=== PATIENT | male | born 1930 | race Caucasian/White ===

== ENCOUNTER 2017-02-26 08:59 | Inpatient (IN) ==
[2017-02-26] MEDS ORDERED: ASPIRIN 325 MG TABLET PO STA (09:16)
--- NOTE | 2017-02-26 09:19 | EKG Report ---
Stationary ECG Study [facility] ER Test Date: 02/26/2017 9:11:16 AM Pat Name: ARMIN COLLIER Department: Room: Gender: M Rn Women Services: : 1930 Requested by: Dillon Casas Order Number: [id number] Reading MD: NATA MARTINEZ Intervals [address] Rate: 43 P: -4 TN: 187 QRS: 12 QRSD: 96 T: 101 QT: 501 QTc: 449 Interpretive Statements SINUS BRADYCARDIA MODERATE T-WAVE ABNORMALITY, CONSIDER ANTEROLATERAL ISCHEMIA Electronically Signed On 02-28-17 15:14:34 CDT by NATA MARTINEZ [id number]
[2017-02-26 09:26] LABS: Basophils % 0.6 % (0.0-0.8); Eosinophils # 0.2 10*3/uL (0.0-0.87); Hematocrit 41.4 VOL% (42.0-52.0); Immature Granulocytes % 0.2 %; Immature Granulocytes Absolute 0.01 #; Lymphocytes # 1.7 10*3/uL (1.4-4.0); Mean Corpuscular HGB Conc 33.8 GM/DL (32-36); Mean Corpuscular Hemoglobin 32 PG (27-34); Mean Corpuscular Volume 94.5 FL (87-102); Mean Platelet Volume 9.5 FL (9.6-12.0); Monocytes # 0.5 10*3/uL (0.11-0.8); Monocytes % 10.3 % (1.7-12.7); Neutrophils # 2.3 10*3/uL (1.4-7.4); Neutrophils % 47.9 % (38.7-73.9); Platelet Count 223 T/CUMM (130-400); Red Blood Count 4.38 MC/CUMM (3.8-5.5); Red Cell Distribution Width 14.4 % (9.3-17.3); White Blood Count 4.8 T/CUMM (4-12)
--- NOTE | 2017-02-26 09:31 | Emergency Department Note ---
Humberto Aldridge Brooke, am scribing for, and in the presence of, Dillon Alvarez MD 09:24 . Kim Aldridge James D, MD, personally performed the services described in this documentation, ascribed by Eloisa Paul in my presence, and it is both accurate and complete 929 . Arrival - Arrival Chief Complaint: Chest Pain Stated Complaint: chest pain/syncope ED Nursing Triage Note: pt reports not feeling well for about two weeks. went to [place] this morning and had episode of pain across his chest followed by possible syncopal episode. diaphoretic on ems arrival. Mode of Arrival: Stretcher Limitations: No Limitations Source: Patient, RN Notes Reviewed Time Seen by Provider: 02/26/17 09:13 - History of Present Illness HPI Narrative: Patient is a 86 year old male, who was brought into the ED by EMS, following an episode of chest pain and possible syncope. Patient was with his and were going to [employer] when he had this episode. Patient's had already gone inside, but he says when he got out of his vehicle, he had some sudden onset left sided chest pain and then says he feel but is unsure if he actually fainted. Family says Patient was found hanging onto his vehicle and they do not think he hit his head. Patient says he has been feeling "bad" for the past four to five weeks. He says his chest pain is gone, now. His has a history of Parkinson's Disease but Family says his tremors is currently worse than they normally are. He denies being lightheaded but upon exam, he says he did have some when he sat up. Patient also denies any melena, blood in stool, or leg/ feet edema. Patient also has PMHx of HTN and pulmonary embolism. Patient's Primary Care Provider is EXPERIENCE DESIGNER Iwona Davey. Patient is prescribed some eye drops but they are unsure what they are for. Patient goes back to see his Opthamologist, Dr. Alfonso, On March 10, 2017. Allergies/Adverse Reactions: Allergies Allergy/AdvReac Type Severity Reaction Status Date / Time meperidine [From Demerol] Allergy Unknown/Unable Verified 02/26/17 09:09 to obtain Review of System - Review of System 12 point system: reviewed and no additional remarkable complaints except as stated - Review of System Constitutional: Absent: fever Respiratory: Absent: respiratory distress Cardiovascular: Present: chest pain (left sided- gone now), syncope (possible episode). Absent: edema Skin: Absent: rash Medical,Surgical,& Family Hx - Medical History Cardio: History of: Hypertension Respiratory: History of: Pulmonary Embolism Musculoskeletal: History of: Musculoskeletal Problems - Surgical History Cardiac Surgeries: Sugical HX of: Cardiac Catheterization (stents), Cardiac Surgery (bypass) - Social History Smoking Status: Unknown if ever smoked Exam Vital Signs: Vital Signs Pulse Rate 44 L 02/26/17 09:00 Respiratory Rate 18 02/26/17 09:00 Blood Pressure 135/56 02/26/17 09:00 O2 Sat by Pulse Oximetry 97 02/26/17 09:00 - General General appearance: alert, in no apparent distress, other (tremors typical of Parkinson's Disease. ) - Head Head exam: Present: atraumatic, normocephalic - Eye Eye exam: Present: normal appearance, PERRL, EOMI - ENT ENT exam: Present: normal exam - Neck Neck exam: Present: normal inspection - Chest Chest inspection: Present: normal inspection, symmetric chest wall rise - Respiratory Respiratory exam: Present: normal lung sounds bilaterally - Cardiovascular Cardiovascular exam: Present: normal rhythm, bradycardia, normal heart sounds - Abdominal Exam Abdominal exam: Present: soft. Absent: distention, tenderness - Extremities Exam Extremities exam: Present: other (Stiff) - Back Exam Back exam: Present: normal inspection - Neurological Exam Neurological exam: Present: alert, oriented X3 - Psychiatric Psychiatric exam: Present: normal affect, normal mood - Skin Skin exam: Present: warm, dry, intact, normal color Course - Consultations Consultation #1: Discussed with cardiology. Patient will be admitted to their service. Time: 10:10 Results - Labs CBC & BMP: 02/26/17 09:17 02/26/17 09:17 Lab Results: I have reviewed the patients labs Labs: Laboratory Tests 02/26/17 09:17 Troponin I < 0.015 - EKG EKG results: interpreted by ERMD - Impressions EKG: Sinus bradycardia with a rate of 43, ST segment abnormalities anteriorly consistent with ischemia. Normal axis. - Diagnostic Findings Procedure: Chest x-ray: image reviewed by me (No cardiomegaly, old median sternotomy, no pleural effusions, no infiltrates per), CT: image reviewed by me (CT head: No acute intracranial lesions or hemorrhage.)
--- NOTE | 2017-02-26 09:32 | CT Report ---
CT head/brain wo con Indication: Near syncope Comparison: None Technique: Multiple axial tomographic images of the brain were obtained without the use of intravenous contrast. Findings: Midline structures are nondisplaced. There is no evidence of acute intracranial hemorrhage or hydrocephalus. Moderate global volume loss present. Moderate periventricular and subcortical hypoattenuation noted which is nonspecific but consistent with chronic microvascular ischemic change. Demyelinating process and vasculitis less likely considerations. Atherosclerotic calcifications demonstrated. The visualized paranasal sinuses and bilateral mastoid air cells are essentially clear. IMPRESSION: No acute intracranial abnormality demonstrated. Probable chronic microvascular ischemic change and volume loss. The CT exam was performed using one or more of the following dose reduction techniques: Automated exposure control, adjustment of the mA and/or kV according to patient size, or use of iterative reconstruction technique. PROCEDURE INTERPRETED AT [facility] DEPARTMENT OF RADIOLOGY Final Report Signed by: Dr Dawood Bardales
[2017-02-26 09:36] LABS: PT Patient Result 10.7 SECS; Partial Thromboplastin Time < 21.0 SECS (0-40)
--- NOTE | 2017-02-26 09:42 | XRay Report ---
XR chest 1V Indication: Chest pain Comparison: None Technique: Single frontal view of the chest. Findings: Borderline cardiomegaly status post sternotomy. Chronic change of the lungs without focal consolidation, pleural effusion, or pneumothorax. Visualized osseous and surrounding soft tissue structures demonstrate no acute abnormality. Diffuse osteopenia. Nonspecific 9 mm sclerotic focus within the left clavicle. Prominent hiatal hernia. IMPRESSION: As above. PROCEDURE INTERPRETED AT [facility] DEPARTMENT OF RADIOLOGY Final Report Signed by: Dr Dawood Bardales
[2017-02-26 10:03] LABS: Albumin 3.3 G/DL (3.4-5.0); Calcium 8.7 MG/DL (8.5-10.1); Magnesium 2.3 MG/DL (1.8-2.4); Osmolality,Calculated 278.5 MOS/KG (273-304); Potassium 4.3 MMOL/L (3.5-5.1); Total Protein 5.9 G/DL (6.4-8.3)
[2017-02-26] MEDS ORDERED: ASPIRIN 325 MG TABLET ONE (10:05)
[2017-02-26 10:48] LABS: Free T4 (Free Thyroxine) 0.94 NG/DL (0.76-1.46); Thyroid Stimulating Hormone 1.56 uIU/ml (0.358-3.74)
[2017-02-26] MEDS ORDERED: MAGNESIUM SULF RIDER 4 GM in PREMIX 1 EACH IV PRN (12:00)
[2017-02-26] MEDS ORDERED: MAGNESIUM SULF RIDER 2 GM in PREMIX 1 EACH IV PRN (12:00)
[2017-02-26 12:31] LABS: Bilirubin,Total 0.5 MG/DL (0.2-1.0)
--- NOTE | 2017-02-26 12:55 | EKG Report ---
Stationary ECG Study [facility] Test Date: 02/26/2017 12:56:52 PM Pat Name: ARMIN COLLIER Department: Room: EDWAIT Gender: M Value Analysis Coordinator: BEBE : 1930 Requested by: Dillon Casas Order Number: [id number] Reading MD: NATA MARTINEZ Intervals [place] Rate: 54 P: 15 SD: 191 QRS: -5 QRSD: 94 T: 60 QT: 460 QTc: 446 Interpretive Statements SINUS BRADYCARDIA POSSIBLE ANTERIOR MYOCARDIAL INFARCTION, OF INDETERMINATE AGE MODERATE T-WAVE ABNORMALITY, CONSIDER LATERAL ISCHEMIA Electronically Signed On 02-28-17 15:27:10 CDT by NATA MARTINEZ [id number]
[2017-02-26] MEDS ORDERED: DOCUSATE SODIUM 100 MG CAPSULE PO PRN (14:22)
[2017-02-26] MEDS: SODIUM CHLORIDE 0.9% 1,000 ML IV SCH (14:46)
--- NOTE | 2017-02-26 14:56 | Cardiology History & Physical ---
Assessment and Plan - Time spent with patient Time spent with patient: Greater than 30 minutes (due to assessment, plan, and documentation) (1) Syncope and collapse Status: Acute Current Visit: Yes (2) Chest pain Status: Acute Current Visit: Yes (3) Bradycardia Status: Acute Current Visit: Yes (4) Coronary artery disease Status: Chronic Current Visit: Yes (5) Dyslipidemia Status: Chronic Current Visit: Yes (6) Hypertension Status: Chronic Current Visit: Yes History of Present Illness Chief complaint: syncope, bradycardia History of present illness: AIDS SOCIAL WORKER: DR. MEDINA PCP: DR. SCHAFER Mr. Adams is a 86 year old male with a history of bradycardia, coronary artery disease, dyslipidemia, hypertension. He is status post coronary artery bypass grafting involving three vessels in 1997. His last stress test was 04/21/12 and revealed scar in the distal anterior wall that has possibly a very small area of reed-infarct ischemia. Last echocardiogram was 05/31/14 and revealed EF 50%, Grade I diastolic dysfunction, mild aortic insufficiency, mild mitral regurgitation, mild tricuspid insufficiency with moderate pulmonary hypertension. He also has a history of PE and DVT many years ago for which he was on anticoagulation but has subsequently been taken off. History: Presented to the emergency room this morning after syncopal episode and chest pain. He tells me that he has not felt good for the past 4-5 weeks. He has had no energy, no appetite, and has been fatigued. He denies any chest pain or shortness of breath at rest or on exertion during the past 4-5 weeks other than the episode today. This morning, he reports he had a pain across his chest from the left side to the right side around 8:00 this morning. He is unable to describe this very well and only reports "it hurt." He tells me he went to [place] for breakfast and when he arrived he began to feel lightheaded and diaphoretic. He got out of the truck and walked around to the front and he tells me the next thing he knew he was sitting on the sidewalk. He reports a glass pulverizer equipment operator had come outside to check on him. It sounds as if he may have had a syncopal episode, although he does not remember for sure. His has late stage Alzheimer's disease and was already in the restaurant when this event occurred. Patient also has a history of Parkinson's disease and his family reports his tremors have been worse than they usually are. He tells me when he "came to," his chest pain was gone. It lasted approximately 20-30 minutes. Upon arrival to the ER, he was noted to be in sinus bradycardia with rates in the 40s. He tells me his heart rate was 43 yesterday when his home health nurse checked it. His head CT showed no acute intracranial abnormality. Carotid dopplers and echocardiogram are pending. Thus far, he has had 2 sets of negative cardiac biomarkers. His H&H is stable. Potassium is 4.3, magnesium 2.3 , creatinine 1.0, GFR 71. ASSESSMENT/PLAN: 1. SYNCOPE - Etiology unclear. Neurology consult will be unavailable until Wednesday as we are on neurology bypass. His head CT was negative. Carotid dopplers are pending. We will review his echocardiogram. 2. CHEST PAIN - We will continue to cycle cardiac biomarkers and EKGs and follow trend. If he is ruled out for IL, he may need follow up with outpatient stress testing. Will await further recommendations from Dr. Vick. 3. BRADYCARDIA - He has a history of bradycardia, previously related to being on Bystolic. This resolved with discontinuation of the beta lary. He is currently on no beronica-blocking agents and we will avoid these. 4. CORONARY ARTERY DISEASE - He is status post coronary artery bypass grafting involving three vessels in 1997. His last stress test was 04/21/12 and revealed scar in the distal anterior wall that has possibly a very small area of reed- infarct ischemia. Last echocardiogram was 05/31/14 and revealed EF 50%, Grade I diastolic dysfunction, mild aortic insufficiency, mild mitral regurgitation, mild tricuspid insufficiency with moderate pulmonary hypertension. 5. DYSLIPIDEMIA - Will check lipid panel in the morning. Patient is not currently on statin therapy. 6. HYPERTENSION - We will continue his home medications and monitor and adjust accordingly. Home Medications Medication Instructions Recorded Confirmed Type Allopurinol [Allopurinol] 300 mg PO QPM 02/26/17 02/26/17 History Aspirin EC Tab 81 mg PO QPM 02/26/17 02/26/17 History Clopidogrel Bisulfate [Clopidogrel] 75 mg PO QPM 02/26/17 02/26/17 History Docusate Sodium 100 mg PO DAILY PRN 02/26/17 02/26/17 History Donepezil [Aricept] 5 mg PO QAM 02/26/17 02/26/17 History Doxepin HCl [SINEquan] 150 mg PO BEDTIME 02/26/17 02/26/17 History Gabapentin [Gabapentin] 100 mg PO QPM 02/26/17 02/26/17 History Hydrocodone/Acetaminophen 1 each PO Q6H PRN 02/26/17 02/26/17 History [Hydrocodon-Acetaminoph 7.5-325] Levocetirizine Dihydrochloride 5 mg PO QPM 02/26/17 02/26/17 History [Xyzal] Lisinopril [Lisinopril] 5 mg PO QAM 02/26/17 02/26/17 History Lutein/Zeaxanthin [Ocuvite Lutein 1 each PO QAM 02/26/17 02/26/17 History 25-5 mg Softgel] Multivit-Min/FA/Lycopen/Lutein 1 each PO QAM 02/26/17 02/26/17 History [Centrum Silver Men Tablet] Allergies Allergy/AdvReac Type Severity Reaction Status Date / Time meperidine [From Demerol] Allergy Unknown/Unable Verified 02/26/17 09:09 to obtain Review of systems: - Constitutional: Present: weakness, anorexia, As per HPI. Absent: chills, daytime sleepiness, excessive sweating, fever(s), frequent falls, headache(s), increased appetite, lethargy, malaise, night sweats, stops breathing during sleep, weight gain, weight loss, fatigue. - EENT Eyes: Present: As per HPI. Absent: blurry vision, diplopia, loss of vision Ears: Present: As per HPI. Absent: decreased hearing, ear discharge, ear pain Nose, mouth and throat: Present: As per HPI. Absent: dysphagia, epistaxis, headache(s), hoarseness, lip swelling, nasal congestion, neck mass, neck pain, sinus pressure, sore throat, throat swelling, tongue swelling, vertigo - Cardiovascular: Present: chest pain at rest, lightheadedness, as per HPI. Absent: chest pain with activity, dyspnea, dyspnea on exertion, edema, claudication, diaphoresis, radiating jaw, neck or arm pain, orthopnea, palpitations, PND - Respiratory: Present: as per HPI. Absent: dyspnea, dyspnea on exertion, cough , hemoptysis, wheezing, snoring, pain on inspiration - Gastrointestinal: Present: As per HPI. Absent: abdominal pain, bloating, change in bowel habits, constipation, diarrhea, heartburn, hematemesis, hematochezia, loose stools, melena, nausea, vomiting - Genitourinary: Present: As per HPI. Absent: difficulty urinating, dysuria, flank pain, hematuria, nocturia, urinary frequency, urinary incontinence - Musculoskeletal: Present: As per HPI. Absent: arthralgias, back pain, joint swelling, limited range of motion, muscle cramps, muscle weakness, myalgias - Neurological: Present: syncope, As per HPI. Absent: abnormal gait, abnormal speech, behavioral changes, confusion, convulsions, disequilibrium, dizziness, focal weakness, frequent falls, headache(s), memory loss, numbness, paresthesias , radicular pain, tremor(s) - Psychiatric: Present: As per HPI. Absent: anxiety, confusion, depression, panic attacks - Endocrine: Present: fatigue, As per HPI. Absent: cold intolerance, heat intolerance, polydipsia, polyphagia - Hematologic/Lymphatic: Present: easy bruising, As per HPI. Absent: easy bleeding, lymphadenopathy Medical,Surgical,& Family Hx - Medical History Cardio: History of: CAD, Hypertension, IL Endocrine: History of: Dyslipidemia Respiratory: History of: Pulmonary Embolism Musculoskeletal: History of: Musculoskeletal Problems - Surgical History Cardiac Surgeries: Sugical HX of: Cardiac Catheterization (stents), Cardiac Surgery (bypass) - Family History Family History: Reports;: Family Diabetes, Family Heart Disease, Family Hypertension - Social History Smoking Status: Unknown if ever smoked Frequency of Alcohol Use: None Type of Drug Use: None Marital Status: Lives With:: Spouse Functional capacity: independent ambulation Cardiology Physical Exam - Constitutional Vitals: Vital Signs Temp Pulse Resp BP Pulse Ox 98.1 F 47 L 18 176/77 99 02/26/17 12:15 02/26/17 12:15 02/26/17 12:15 02/26/17 12:15 02/26/17 12:15 Intake and Output 02/25/17 02/26/17 02/26/17 22:59 06:59 14:59 Other: Weight 145 lb Patient Weight 02/27/17 06:59 Weight 145 lb Exam: General appearance: Pleasant and cooperative. Normal weight, no acute distress. - Head Head exam: Present: normal inspection, normocephalic, atraumatic. Absent: hematoma, laceration - Eye Eye exam: Present: EOMI. Absent: conjunctival injection, nystagmus, periorbital swelling, scleral icterus, laceration to eyelids Pupils: Present: PERRL. Absent: constricted, dilated, fixed, irregular, unequal - ENT ENT exam: Present: normal exam, normal external ear exam - Neck Neck exam: Present: normal inspection. Absent: lymphadenopathy, meningismus, tenderness, thyromegaly - Respiratory Respiratory exam: Present: clear to auscultation bilaterally. Absent: accessory muscle use, chest wall tenderness - Cardiovascular Cardiovascular exam: Present: regular rate and rhythm. Absent: carotid bruit, gallop, JVD, rubs, murmur - GI/Abdominal GI/Abdominal exam: Present: normal bowel sounds, soft. Absent: distended, firm , guarding, hernia, mass, tenderness, rebound. - Extremities Exam Extremities exam: Present: normal inspection, normal capillary refill. Upper extremity pulses 2+. Lower extremity pulses 2+. Absent: calf tenderness, edema -Musculoskeletal Exam Musculoskeletal: Present: No Fluid Collection, No Pain, Normal Range of Motion - Back Exam Back exam: Present: normal inspection. Absent: muscle spasm, vertebral tenderness - Neurological Exam Neurological exam: Present: alert, oriented X3, grossly intact without resting or essential tremor - Psychiatric Psychiatric exam: Present: normal affect, normal mood - Skin Skin exam: Present: normal color, warm, dry, intact. Absent: cyanosis, diaphoretic, rash, urticaria Result/EKG - Labs CBC & BMP: 02/26/17 09:17 02/26/17 09:17 Lab Results: I have reviewed the past 24 hour labs Labs: Laboratory Results - last 24 hr 02/26/17 02/26/17 02/26/17 09:17 09:17 09:17 WBC 4.8 RBC 4.38 Hgb 14.0 Hct 41.4 L MCV 94.5 MCH 32 MCHC 33.8 RDW 14.4 Plt Count 223 MPV 9.5 L Neut % (Auto) 47.9 Lymph % (Auto) 36.0 Pickett % (Auto) 10.3 Eos % (Auto) 5.0 Baso % (Auto) 0.6 Neut # (Auto) 2.3 Lymph # (Auto) 1.7 Pickett # (Auto) 0.5 Eos # (Auto) 0.2 Baso # (Auto) 0.0 Immature Gran % 0.2 Nucleated RBC % 0.0 Immature Gran # 0.01 Nucleated RBCs # 0.00 INR 1.0 PT Patient/Control Mix 10.7 Circ Anticoag PTT < 21.0 Sodium 139 Potassium 4.3 Chloride 105 Carbon Dioxide 26 Anion Gap 12.3 BUN 15 Creatinine 1.00 GFR Calculation 71 BUN/Creatinine Ratio 15.00 Glucose 112 H Calculated Osmolality 278.5 Calcium 8.7 Magnesium 2.3 Total Bilirubin 0.50 AST 83 H ALT 32 Alkaline Phosphatase 67 Troponin I Total Protein 5.9 L Albumin 3.3 L Globulin 2.6 Albumin/Globulin Ratio 1.2 Free T4 TSH 3rd Generation 02/26/17 02/26/17 09:17 09:17 WBC RBC Hgb Hct MCV MCH MCHC RDW Plt Count MPV Neut % (Auto) Lymph % (Auto) Pickett % (Auto) Eos % (Auto) Baso % (Auto) Neut # (Auto) Lymph # (Auto) Pickett # (Auto) Eos # (Auto) Baso # (Auto) Immature Gran % Nucleated RBC % Immature Gran # Nucleated RBCs # INR PT Patient/Control Mix Circ Anticoag PTT Sodium Potassium Chloride Carbon Dioxide Anion Gap BUN Creatinine GFR Calculation BUN/Creatinine Ratio Glucose Calculated Osmolality Calcium Magnesium Total Bilirubin AST ALT Alkaline Phosphatase Troponin I < 0.015 Total Protein Albumin Globulin Albumin/Globulin Ratio Free T4 0.94 TSH 3rd Generation 1.560 - EKG EKG results: interpreted by me, sinus rhythm EKG shows: bradycardia
--- NOTE | 2017-02-26 15:08 | EKG Report ---
Stationary ECG Study [facility] Test Date: 02/26/2017 3:09:37 PM Pat Name: ARMIN COLLIER Department: Room: 270 Gender: M School Cook: BEBE : 1930 Requested by: Dillon Casas Order Number: [id number] Reading MD: NATA MARTINEZ Intervals [place] Rate: 55 P: 23 CA: 187 QRS: 66 QRSD: 92 T: 99 QT: 467 QTc: 455 Interpretive Statements SINUS RHYTHM ANTEROLATERAL MYOCARDIAL INFARCTION, OF INDETERMINATE AGE Electronically Signed On 02-28-17 15:29:40 CDT by NATA MARTINEZ [id number]
[2017-02-26 15:10] LABS: Troponin I Only 0.016 NG/ML (0.00-0.045)
--- NOTE | 2017-02-26 16:22 | Ultrasound Report ---
History is syncopal episode Grayscale, spectral Doppler, and color flow analysis performed and interpreted There is mild amount of soft and partially calcified plaque in the distal common and proximal internal carotid arteries bilaterally Maximum systolic velocities are 89 on the right and 73 in the left Peak systolic ratio is 1.2 and the right and 1.0 on the left There is antegrade flow in both vertebral arteries Impression: Mild amount of plaque with less than 50% diameter stenoses bilaterally by NASCET criteria PROCEDURE INTERPRETED AT [facility] DEPARTMENT OF RADIOLOGY Final Report Signed by: Dr. Joann Liu
--- NOTE | 2017-02-26 18:51 | ECHO Report ---
Giuseppe Adams 02/26/2017 Exam Date: 14:01 Referring Physician: Lexus Zavala Technologist: ROSE Age: 86 Ht (in): 70 Wt (lb): 145 MExam Location[facility] Gender: Echo [id number]: HTN, bradycardia, syncope, chest painIndications: BP: 176 / 77 HR: 47 SinusRhythm: GoodTechnical Quality: IMPRESSIONS 3 + increased upper septal wall thickness. Mild concentric left ventricular hypertrophy with diastolic dysfunction. Left ventricular ejection fraction is estimated at 55-60 %. The right atrium is mildly enlarged. The left atrium is moderately enlarged. Mild mitral valve regurgitation. Moderate aortic valve regurgitation. Mild aortic valve sclerosis. Fwyo-wm-nxliemzt tricuspid valve regurgitation. Tricuspid regurgitation velocities suggest a PAP of 29 mmHg. MEASUREMENTS (Male / Female) Normal Values 2D ECHO LV Diastolic Diameter PLAX 4.7 cm 4.2 - 5.9 / 3.9 - 5.3 cm LV Systolic Diameter PLAX 2.7 cm LV Fractional Shortening PLAX 41.9 % IVS Diastolic Thickness 1.4 cm 0.6 - 1.0 / 0.6 - 0.9 cm LVPW Diastolic Thickness 1.2 cm 0.6 - 1.0 / 0.6 - 0.9 cm RV Internal Dim ED PLAX 2.6 cm Aortic Root Diameter 2.6 cm LA Systolic Diameter LX 3.3 cm 3.0 - 4.0 / 2.7 - 3.8 cm DOPPLER TR Peak Velocity 220.0 cm/s TR Peak Gradient 19.4 mmHg FINDINGS Left Ventricle 3 + increased upper septal wall thickness. Mild concentric left ventricular hypertrophy with diastolic dysfunction. Left ventricular ejection fraction is estimated at 55-60 %. Right Ventricle Normal right ventricular size and systolic function. Right Atrium The right atrium is mildly enlarged. Left Atrium The left atrium is moderately enlarged. Mitral Valve Mild mitral valve sclerosis. Mild mitral valve regurgitation. Aortic Valve Mild aortic valve sclerosis. Moderate aortic valve regurgitation. Tricuspid Valve Morphologically normal tricuspid valve. Kans-un-eatjpdeu tricuspid valve regurgitation. Tricuspid regurgitation velocities suggest a PAP of 29 mmHg. Pulmonic Valve Morphologically normal pulmonic valve. Pericardium No pericardial effusion. Aorta Normal size aortic root and proximal ascending aorta. Cy Vick MD (Electronically Signed) 26 February 2017 Final Date: 18:49
[2017-02-26] MEDS: CETIRIZINE 10 MG TABLET PO SCH (18:53)
[2017-02-26] MEDS: ALLOPURINOL 300 MG TABLET PO SCH (18:53)
[2017-02-26] MEDS: GABAPENTIN 100 MG CAPSULE PO SCH (18:53)
[2017-02-26] MEDS: ASPIRIN EC 81 MG TABLET PO SCH (18:53)
[2017-02-26] MEDS ORDERED: DOXEPIN 50 MG CAPSULE PO SCH (21:00)
[2017-02-26 21:53] LABS: Troponin I Only 0.015 NG/ML (0.00-0.045)
[2017-02-26] MEDS ORDERED: traZODone 50 MG TABLET ONE (22:28)
[2017-02-26] MEDS ORDERED: DOXEPIN 100 MG CAPSULE ONE (22:29)
[2017-02-26] MEDS ORDERED: TEMAZEPAM 15 MG CAPSULE ONE (22:29)
[2017-02-26] MEDS ORDERED: DOXEPIN 25 MG CAPSULE ONE (22:29)
[2017-02-26] MEDS: DOXEPIN 100 MG CAPSULE PO SCH (22:30)
[2017-02-26] MEDS: TEMAZEPAM 15 MG CAPSULE PO SCH (22:30)
[2017-02-26] MEDS: traZODone 50 MG TABLET PO SCH (22:30)
[2017-02-26] MEDS: SERTRALINE 100 MG TABLET PO SCH (22:31)
[2017-02-26] MEDS: DOXEPIN 25 MG CAPSULE PO SCH (22:31)
[2017-02-27 03:53] LABS: Basophils # 0.1 10*3/uL (0.0-0.2); Eosinophils # 0.3 10*3/uL (0.0-0.87); Eosinophils % 6.1 % (0.00-10.9); Hematocrit 38.8 VOL% (42.0-52.0); Hemoglobin 13.2 GM/DL (14.0-18.0); Immature Granulocytes % 0.2 %; Immature Granulocytes Absolute 0.01 #; Lymphocytes # 1.3 10*3/uL (1.4-4.0); Lymphocytes % 26.1 % (21.2-54.2); Mean Corpuscular Hemoglobin 32 PG (27-34); Mean Corpuscular Volume 93.7 FL (87-102); Mean Platelet Volume 9.7 FL (9.6-12.0); Monocytes # 0.5 10*3/uL (0.11-0.8); Monocytes % 9.4 % (1.7-12.7); Neutrophils # 2.7 10*3/uL (1.4-7.4); Neutrophils % 57.2 % (38.7-73.9); Platelet Count 193 T/CUMM (130-400); Red Blood Count 4.14 MC/CUMM (3.8-5.5); Red Cell Distribution Width 14.3 % (9.3-17.3); White Blood Count 4.8 T/CUMM (4-12)
[2017-02-27 04:22] LABS: Troponin I Only 0.018 NG/ML (0.00-0.045)
[2017-02-27 04:23] LABS: Calcium 8.2 MG/DL (8.5-10.1); Magnesium 2.2 MG/DL (1.8-2.4); Osmolality,Calculated 281.1 MOS/KG (273-304); Potassium 3.8 MMOL/L (3.5-5.1); Risk Ratio 2.5; VLDL CHOLESTEROL 9.8 MG/DL
[2017-02-27] MEDS ORDERED: ATROPINE 1 MG/10 ML SYRINGE IV ONE (06:14)
[2017-02-27 06:52] LABS: Apearance,Urine CLEAR (Clear); Bilirubin,Urine Negative (Negative); Blood, Urine Negative (Negative); Glucose,Urine (UA) Negative (Negative); Ketones,Urine 5 mg/dL (Negative); Nitrite,Urine Negative (Negative); Protein,Urine Negative; Urine Color Straw (Yellow); Urine Specific Gravity 1.005 (1.001-1.035); Urine Urobilinogen < 2.0 EU/DL (0.2-1.0); WBC,Urine <1 /HPF (0-6)
--- NOTE | 2017-02-27 08:21 | Cardiology Progress Note ---
Assessment and Plan - Time spent with patient Time spent with patient: Greater than 30 minutes (1) Bradycardia Status: Acute Assessment and plan: He has now had documented bradycardia with a syncopal episode. 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 He has been on it for years, to my knowledge. He is somewhat orthostatic and has slightly low blood pressure, there is no obvious medication causes His daughter notes he has had some vasovagal symptoms in the past, but this is a new episode where he had a clear syncopal episode and now has persistent bradycardia Plan/recommendation: Consult Dr. Castillo-leanne need DDDR pacer I reviewed his labs. He is cardiac isoenzymes are negative. I believe his recent chest pain was vague. I assess is not been due to CAD No other medication or electrolyte problem which would account for this bradycardia I reviewed his echo. His good LVEF, so he would not need a defibrillator. Also , I do not know of a history of atrial fibrillation. We are giving him some saline to help with this orthostasis/borderline low blood pressure. The above was discussed with the patient and his family. They understand the situation and agree with the plan. I conferred care with patient's nurse. I conferred care with Dr. Castillo who will assess independently and give his thoughts as whether he needs a DDDR pacer Addendum: I discussed with his daughter, Alba, regarding the Aricept. Patient has been on it since about 12/31/16. I will hold the Aricept and use Namenda. Current Visit: Yes (2) Chest pain Status: Acute Current Visit: Yes (3) Syncope and collapse Status: Acute Current Visit: Yes (4) Dyslipidemia Status: Chronic Current Visit: Yes (5) Hypertension Status: Chronic Current Visit: Yes (6) Hypotension Status: Acute Current Visit: Yes (7) Vasovagal syncope Status: Acute Current Visit: Yes Cardiology - PN: Subj Interval history: Events of last night were noted. Patient got up to go to the bathroom and then had a syncopal episode. LABORATORY ENGINEER was called. During that time his heart rate down to in the 30s. His blood pressure was also low. He was moved to the CCU. I believe he was given some atropine with that event. He did not hit his head he seemed to slump down on the floor. He had a CT of the head done yesterday which was negative. No chest pain. No orthopnea, PND, edema, palpitations, cough wheezing or phlegm. Exam (Progress Note) - Constitutional Vitals: Period Temp Pulse Resp BP Sys/Guzmán Pulse Ox Last 24 Hr 96.6 F-98.5 F 40-96 13-20 95-176/52-77 96-99 Exam: HEENT: Pupils equal, reactive to light and accommodation Neck: NoJVD or bruit Lungs clear to auscultation Heart: Regular rhythm rate with normal S1 and S2. Apical S4 Abdomen: No hepatosplenomegaly Spine/extremities: No clubbing, cyanosis, or edema. Lower extremity pulses were 2-3+ Neurononfocal. Alert and oriented 3. Can move arms and legs legs normally. Examination of the head revealed no hematoma Exam of the remainder the body reveals no hematoma or tender place other than his right hip where there is tenderness but is not exquisite. He can move his right leg spontaneously or to command. It does not hurt significantly with that Activity. Result/EKG - Labs CBC & BMP: 02/27/17 03:18 02/27/17 03:18 Lab Results: I have reviewed the past 24 hour labs Labs: Laboratory Results - last 24 hr 02/26/17 02/26/17 02/26/17 09:17 09:17 09:17 WBC 4.8 RBC 4.38 Hgb 14.0 Hct 41.4 L MCV 94.5 MCH 32 MCHC 33.8 RDW 14.4 Plt Count 223 MPV 9.5 L Neut % (Auto) 47.9 Lymph % (Auto) 36.0 King % (Auto) 10.3 Eos % (Auto) 5.0 Baso % (Auto) 0.6 Neut # (Auto) 2.3 Lymph # (Auto) 1.7 King # (Auto) 0.5 Eos # (Auto) 0.2 Baso # (Auto) 0.0 Immature Gran % 0.2 Nucleated RBC % 0.0 Immature Gran # 0.01 Nucleated RBCs # 0.00 INR 1.0 PT Patient/Control Mix 10.7 Circ Anticoag PTT < 21.0 Sodium 139 Potassium 4.3 Chloride 105 Carbon Dioxide 26 Anion Gap 12.3 BUN 15 Creatinine 1.00 GFR Calculation 71 BUN/Creatinine Ratio 15.00 Glucose 112 H POC Glucose Calculated Osmolality 278.5 Calcium 8.7 Magnesium 2.3 Total Bilirubin 0.50 AST 83 H ALT 32 Alkaline Phosphatase 67 Total Creatine Kinase CK-MB (CK-2) Troponin I Total Protein 5.9 L Albumin 3.3 L Globulin 2.6 Albumin/Globulin Ratio 1.2 Triglycerides Cholesterol LDL Cholesterol VLDL Cholesterol HDL Cholesterol Heart Disease Risk Ratio Free T4 TSH 3rd Generation Urine Color Urine Appearance Urine pH Ur Specific [place] Urine Protein Urine Glucose (UA) Urine Ketones Urine Blood Urine Nitrate Urine Bilirubin Urine Urobilinogen Urine Leukocytes Urine WBC Ur Culture Indicated? 02/26/17 02/26/17 02/26/17 09:17 09:17 14:25 WBC RBC Hgb Hct MCV MCH MCHC RDW Plt Count MPV Neut % (Auto) Lymph % (Auto) King % (Auto) Eos % (Auto) Baso % (Auto) Neut # (Auto) Lymph # (Auto) [place] # (Auto) Eos # (Auto) Baso # (Auto) Immature Gran % Nucleated RBC % Immature Gran # Nucleated RBCs # INR PT Patient/Control Mix Circ Anticoag PTT Sodium Potassium Chloride Carbon Dioxide Anion Gap BUN Creatinine GFR Calculation BUN/Creatinine Ratio Glucose POC Glucose Calculated Osmolality Calcium Magnesium Total Bilirubin AST ALT Alkaline Phosphatase Total Creatine Kinase 52 CK-MB (CK-2) 1.5 Troponin I < 0.015 0.016 Total Protein Albumin Globulin Albumin/Globulin Ratio Triglycerides Cholesterol LDL Cholesterol VLDL Cholesterol HDL Cholesterol Heart Disease Risk Ratio Free T4 0.94 TSH 3rd Generation 1.560 Urine Color Urine Appearance Urine pH Ur Specific [place] Urine Protein Urine Glucose (UA) Urine Ketones Urine Blood Urine Nitrate Urine Bilirubin Urine Urobilinogen Urine Leukocytes Urine WBC Ur Culture Indicated? 02/26/17 02/27/17 02/27/17 20:38 03:18 03:18 WBC 4.8 RBC 4.14 Hgb 13.2 L Hct 38.8 L MCV 93.7 MCH 32 MCHC 34.0 RDW 14.3 Plt Count 193 MPV 9.7 Neut % (Auto) 57.2 Lymph % (Auto) 26.1 King % (Auto) 9.4 Eos % (Auto) 6.1 Baso % (Auto) 1.0 H Neut # (Auto) 2.7 Lymph # (Auto) 1.3 L [place] # (Auto) 0.5 Eos # (Auto) 0.3 Baso # (Auto) 0.1 Immature Gran % 0.2 Nucleated RBC % 0.0 Immature Gran # 0.01 Nucleated RBCs # 0.00 INR PT Patient/Control Mix Circ Anticoag PTT Sodium Potassium Chloride Carbon Dioxide Anion Gap BUN Creatinine GFR Calculation BUN/Creatinine Ratio Glucose POC Glucose Calculated Osmolality Calcium Magnesium Total Bilirubin AST ALT Alkaline Phosphatase Total Creatine Kinase 61 64 CK-MB (CK-2) 1.4 1.4 Troponin I 0.015 0.018 Total Protein Albumin Globulin Albumin/Globulin Ratio Triglycerides Cholesterol LDL Cholesterol VLDL Cholesterol HDL Cholesterol Heart Disease Risk Ratio Free T4 TSH 3rd Generation Urine Color Urine Appearance Urine pH Ur Specific [place] Urine Protein Urine Glucose (UA) Urine Ketones Urine Blood Urine Nitrate Urine Bilirubin Urine Urobilinogen Urine Leukocytes Urine WBC Ur Culture Indicated? 02/27/17 02/27/17 02/27/17 03:18 05:56 06:25 WBC RBC Hgb Hct MCV MCH MCHC RDW Plt Count MPV Neut % (Auto) Lymph % (Auto) [place] % (Auto) Eos % (Auto) Baso % (Auto) Neut # (Auto) Lymph # (Auto) King # (Auto) Eos # (Auto) Baso # (Auto) Immature Gran % Nucleated RBC % Immature Gran # Nucleated RBCs # INR PT Patient/Control Mix Circ Anticoag PTT Sodium 142 Potassium 3.8 Chloride 106 Carbon Dioxide 26 Anion Gap 13.8 BUN 12 Creatinine 0.80 GFR Calculation 84 BUN/Creatinine Ratio 15.00 Glucose 80 POC Glucose 103 Calculated Osmolality 281.1 Calcium 8.2 L Magnesium 2.2 Total Bilirubin AST ALT Alkaline Phosphatase Total Creatine Kinase CK-MB (CK-2) Troponin I Total Protein Albumin Globulin Albumin/Globulin Ratio Triglycerides 49 Cholesterol 165 LDL Cholesterol 98.0 VLDL Cholesterol 9.8 HDL Cholesterol 66 H Heart Disease Risk Ratio 2.50 Free T4 TSH 3rd Generation Urine Color Straw Urine Appearance Clear Urine pH 6.0 Ur Specific [place] 1.005 Urine Protein Negative Urine Glucose (UA) Negative Urine Ketones 5 Urine Blood Negative Urine Nitrate Negative Urine Bilirubin Negative Urine Urobilinogen < 2.0 H Urine Leukocytes Negative Urine WBC <1 Ur Culture Indicated? Not indicated
[2017-02-27] MEDS: SODIUM CHLORIDE 0.9% 1,000 ML IV SCH (08:54)
[2017-02-27] MEDS ORDERED: DONEPEZIL 5 MG TABLET PO SCH (09:00)
[2017-02-27] MEDS ORDERED: LISINOPRIL 5 MG TABLET PO SCH (09:00)
[2017-02-27] MEDS: MULTIVITAMIN (CENTRUM) TABLET PO SCH (09:06)
[2017-02-27] MEDS: MULTIVITAMIN (OCUVITE) TABLET PO SCH (09:07)
[2017-02-27] MEDS: MEMANTINE 5 MG TABLET PO SCH (13:35)
[2017-02-27] MEDS: ASPIRIN EC 81 MG TABLET PO SCH (18:57)
[2017-02-27] MEDS: GABAPENTIN 100 MG CAPSULE PO SCH (18:57)
[2017-02-27] MEDS: ALLOPURINOL 300 MG TABLET PO SCH (18:57)
[2017-02-27] MEDS: CETIRIZINE 10 MG TABLET PO SCH (18:57)
[2017-02-27] MEDS: DOXEPIN 100 MG CAPSULE PO SCH (20:18)
[2017-02-27] MEDS: TEMAZEPAM 15 MG CAPSULE PO SCH (20:18)
[2017-02-27] MEDS: SERTRALINE 100 MG TABLET PO SCH (20:18)
[2017-02-27] MEDS: traZODone 50 MG TABLET PO SCH (20:18)
[2017-02-27] MEDS: DOXEPIN 25 MG CAPSULE PO SCH (20:20)
[2017-02-28 03:11] LABS: Basophils % 0.4 % (0.0-0.8); Eosinophils # 0.4 10*3/uL (0.0-0.87); Eosinophils % 4.8 % (0.00-10.9); Hematocrit 36.3 VOL% (42.0-52.0); Hemoglobin 12.2 GM/DL (14.0-18.0); Immature Granulocytes % 0.4 %; Immature Granulocytes Absolute 0.03 #; Lymphocytes % 13.3 % (21.2-54.2); Mean Corpuscular HGB Conc 33.6 GM/DL (32-36); Mean Corpuscular Hemoglobin 32 PG (27-34); Mean Corpuscular Volume 94.5 FL (87-102); Mean Platelet Volume 9.7 FL (9.6-12.0); Monocytes # 0.6 10*3/uL (0.11-0.8); Monocytes % 8.8 % (1.7-12.7); Neutrophils # 5.3 10*3/uL (1.4-7.4); Neutrophils % 72.3 % (38.7-73.9); Platelet Count 171 T/CUMM (130-400); Red Blood Count 3.84 MC/CUMM (3.8-5.5); Red Cell Distribution Width 14.7 % (9.3-17.3); White Blood Count 7.3 T/CUMM (4-12)
[2017-02-28 03:25] LABS: PT Patient Result 10.4 SECS; Partial Thromboplastin Time < 21.0 SECS (0-40)
[2017-02-28 03:37] LABS: Calcium 7.8 MG/DL (8.5-10.1); Magnesium 2.2 MG/DL (1.8-2.4); Osmolality,Calculated 280.3 MOS/KG (273-304); Osmolality,Calculated 281.1 MOS/KG (273-304); Potassium 3.9 MMOL/L (3.5-5.1)
[2017-02-28] MEDS ORDERED: diphenhydrAMINE CAP 25 MG CAPSULE PO ONE (06:00)
[2017-02-28] MEDS ORDERED: ceFAZolin 1,000 MG VIAL IRRIG ONE (06:00)
[2017-02-28] MEDS: SODIUM CHLORIDE 0.9% 1,000 ML IV SCH (09:52)
[2017-02-28] MEDS: MULTIVITAMIN (CENTRUM) TABLET PO SCH (09:53)
[2017-02-28] MEDS: MEMANTINE 5 MG TABLET PO SCH (09:53)
[2017-02-28] MEDS: MULTIVITAMIN (OCUVITE) TABLET PO SCH (09:53)
--- NOTE | 2017-02-28 12:39 | Cardiology Progress Note ---
Assessment and Plan (1) Bradycardia Status: Acute Assessment and plan: He has now had documented bradycardia with a syncopal episode. 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 He has been on it for years, to my knowledge. He is somewhat orthostatic and has slightly low blood pressure, there is no obvious medication causes His daughter notes he has had some vasovagal symptoms in the past, but this is a new episode where he had a clear syncopal episode and now has persistent bradycardia Plan/recommendation: Consult Dr. Castillo-leanne need DDDR pacer I reviewed his labs. He is cardiac isoenzymes are negative. I believe his recent chest pain was vague. I assess is not been due to CAD No other medication or electrolyte problem which would account for this bradycardia I reviewed his echo. His good LVEF, so he would not need a defibrillator. Also , I do not know of a history of atrial fibrillation. We are giving him some saline to help with this orthostasis/borderline low blood pressure. The above was discussed with the patient and his family. They understand the situation and agree with the plan. I conferred care with patient's nurse. I conferred care with Dr. Castillo who will assess independently and give his thoughts as whether he needs a DDDR pacer Addendum: I discussed with his daughter, Alba, regarding the Aricept. Patient has been on it since about 12/31/16. I will hold the Aricept and use Namenda. 02/28/17: Heart rate slightly better Blood pressure is better holding the lisinopril Dr. Castillo has seen the patient. It is been decided that the patient will have a DDDR pacer today at about 1 or 2:00. This will likely take care of his episodes of bradycardia and syncope His hypotension likely be better on the lower dose of lisinopril. Will restart lisinopril at 2.5 mg p.o. daily with hold parameters. Maybe has labile hypertension which results in high blood pressures which encourage doctors to treat within results in low blood pressures.. Discussed the situation with the patient. He voiced understanding and agrees with plan. 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 I am okay if he follows up with Dr. Castillo or me or who have he prefers. I appreciate Dr. Castillo's help and insight in this problem. Current Visit: Yes (2) Chest pain Status: Acute Current Visit: Yes (3) Syncope and collapse Status: Acute Current Visit: Yes (4) Dyslipidemia Status: Chronic Current Visit: Yes (5) Hypertension Status: Chronic Current Visit: Yes (6) Hypotension Status: Acute Current Visit: Yes (7) Vasovagal syncope Status: Acute Current Visit: Yes (8) Mild cognitive impairment Status: Acute Current Visit: Yes Cardiology - PN: Subj Interval history: No chest pain, shortness breath or recurrent syncope. Exam (Progress Note) - Constitutional Vitals: Period Temp Pulse Resp BP Sys/Guzmán Pulse Ox Last 24 Hr 97.4 F-98.1 F 51-99 12-23 115-157/54-74 92-99 Exam: HEENT: Pupils equal, reactive to light and accommodation Neck: NoJVD or bruit Lungs clear to auscultation Heart: Regular rhythm rate with normal S1 and S2. Apical S4 Abdomen: No hepatosplenomegaly Spine/extremities: No clubbing, cyanosis, or edema. Lower extremity pulses were 2-3+ Neurononfocal. Alert and oriented 3. Can move arms and legs legs normally. Result/EKG - Labs CBC & BMP: 02/28/17 02:46 02/28/17 02:46 Labs: Laboratory Results - last 24 hr 02/28/17 02/28/17 02/28/17 02:46 02:46 02:46 WBC 7.3 D RBC 3.84 Hgb 12.2 L Hct 36.3 L MCV 94.5 MCH 32 MCHC 33.6 RDW 14.7 Plt Count 171 MPV 9.7 Neut % (Auto) 72.3 Lymph % (Auto) 13.3 L [place] % (Auto) 8.8 Eos % (Auto) 4.8 Baso % (Auto) 0.4 Neut # (Auto) 5.3 Lymph # (Auto) 1.0 L [place] # (Auto) 0.6 Eos # (Auto) 0.4 Baso # (Auto) 0.0 Immature Gran % 0.4 Nucleated RBC % 0.0 Immature Gran # 0.03 Nucleated RBCs # 0.00 INR 1.0 PT Patient/Control Mix 10.4 Circ Anticoag PTT < 21.0 Sodium 141 Potassium 3.9 Chloride 107 Carbon Dioxide 25 Anion Gap 12.9 BUN 13 Creatinine 0.80 GFR Calculation 83 BUN/Creatinine Ratio 16.00 Glucose 91 Calculated Osmolality 280.3 Calcium 7.8 L Magnesium 2.2 02/28/17 02:46 WBC RBC Hgb Hct MCV MCH MCHC RDW Plt Count MPV Neut % (Auto) Lymph % (Auto) [place] % (Auto) Eos % (Auto) Baso % (Auto) Neut # (Auto) Lymph # (Auto) [place] # (Auto) Eos # (Auto) Baso # (Auto) Immature Gran % Nucleated RBC % Immature Gran # Nucleated RBCs # INR PT Patient/Control Mix Circ Anticoag PTT Sodium 142 Potassium 3.9 Chloride 109 H Carbon Dioxide 25 Anion Gap 11.9 BUN 12 Creatinine 0.80 GFR Calculation 83 BUN/Creatinine Ratio 15.00 Glucose 89 Calculated Osmolality 281.1 Calcium 8.0 L Magnesium
[2017-02-28] MEDS ORDERED: VANCOMYCIN INJ 500 MG in SODIUM CHLORIDE 0.9% 100 ML IV STA (13:18)
[2017-02-28] MEDS ORDERED: LIDOCAINE 1% 20 ML VIAL ONE (14:37)
[2017-02-28] MEDS ORDERED: MIDAZOLAM 2 MG/2 ML VIAL ONE (14:37)
[2017-02-28] MEDS ORDERED: HEPARIN/NACL 0.9% 2 UNITS/ML 500 ML IV ONE (14:37)
[2017-02-28] MEDS ORDERED: fentaNYL 100 MCG/2 ML VIAL ONE (14:38)
[2017-02-28] MEDS ORDERED: VANCOMYCIN 500 MG VIAL ONE (14:39)
--- NOTE | 2017-02-28 14:54 | History and Physical Update ---
Sedation H&P Update - History and Physical H&P was reviewed, the patient examined and there: are no changes in the patients condition since last H&P was completed. - Sedation Plan for Sedation: moderate Patient Consent: Procedure disscussed with patient and patinet has consented., Risks and benefits were discussed with patient,including infection,, bleeding, injury to surrounding structures, seizure, temporary nerve, Patient understands and accepts potential risks/benefits and agrees to, proceed. ASA Class: IV Airway Assessment: Class III: Soft palate, base of uvula visible
--- NOTE | 2017-02-28 15:55 | Cardiology Operative Report ---
Date of Procedure:: 02/28/17 Pre-op diagnosis: Sinus pauses with syncope Post-op diagnosis: same Procedure: Procedures performed: Dual-chamber pacemaker implant left subclavian vein Indication: See clinical summary above Estimated blood loss: Less than 20 mL Devices implanted: [ Atrial lead: Medtronic model #5076 serial number [id number] ] Ventricular lead: Medtronic model #5076 serial number [id number] Pacemaker: Medtronic model number [id number] Serial number [id number] After obtaining informed consent the patient was brought to the [facility] where the left shoulder was prepped and draped in the usual sterile manner. Using intravenous sedation and local anesthesia a micropuncture needle was used to gain access to the left subclavian vein a micropuncture wire was advanced under fluoroscopy with its tip in the right atrium. The micropuncture needle was removed off of the wire and using the supplied exchange sheath a micropuncture wire was exchanged for an 035 J-wire. At this point a cutdown was made to the prepectoral fascia extended caudally and laterally roughly 5 cm. Bleeding was controlled using electrocautery. At this point another needle stick was made medial to the first with a micropuncture needle inserted into the left subclavian vein. A micropuncture wire was then advanced through the micropuncture needle with its tip to the right atrium. Using the supplied sheath this micropuncture wire was exchanged for an 035 J-wire. The medial wire was then used to pass a tear-away sheath. Through this sheath the ventricular lead was advanced under fluoroscopy with its tip into the right atrium. The sheath was torn away and then the RV lead was advanced under fluoroscopy with its tip near the right ventricular apex. The helix was extended and fluoroscopy was obtained laterally to be certain that the lead was projected anteriorly. Preliminary measurements were felt to be acceptable and at this point the lateral wire was used to pass another tear-away sheath. Through this sheath a atrial lead was passed under fluoroscopy with its tip to the right atrium. The sheath was torn away and using the J stylette this lead was manipulated into the right atrial appendage where the helix was extended and preliminary measurements were felt to be acceptable. At this point both Venotomy sites were closed in a pursestring manner using nonabsorbable suture. The leads were then secured to the underlying pectoral muscle using interrupted nonabsorbable suture. Next a pocket was formed using blunt and sharp dissection. He was irrigated copiously with antibiotic solution and care was taken to suction the irrigant from the pocket to avoid sterile abscess formation. Next the leads were connected to the pulse generator and set screws were tightened and tested. The leads and the device replaced into the pocket the device was secured to the underlying pectoral muscle using a single nonabsorbable suture and the pocket was closed in 2 layers using absorbable suture. Final testing of the leads was done prior to connecting the leads to the pulse generator and these findings are outlined as follows: In the right atrium at a pulse width of 0.5 ms voltage threshold was 1.6 V impedance 631 ohms and the P-wave measured 1.9 mV in the ventricle and a pulse width of 0.5 ms voltage threshold was 0.8 V impedance 1043 ohms and R-wave 8.1 mV. These were felt to be acceptable acute numbers. The patient then was transferred to recovery having suffered no significant immediate complications. Postoperative chest x-ray is pending. Surgeon / Physician: Stephen Castillo Estimated blood loss: minimal Specimens: none sent Condition: stable
[2017-02-28] MEDS ORDERED: ACETAMINOPHEN 325 MG TABLET PO PRN (15:56)
--- NOTE | 2017-02-28 16:21 | XRay Report ---
History is pacemaker placement Comparison 02/26/2017 The heart is enlarged. A pacemaker has been placed in the interval. Skin folds overlie both lung apices without pneumothorax seen. Large hiatal hernia again seen No congestive failure or confluent infiltrate seen. Impression: Interval pacemaker placement without apparent complication PROCEDURE INTERPRETED AT [facility] DEPARTMENT OF RADIOLOGY Final Report Signed by: Dr. Joann Liu
[2017-02-28] MEDS ORDERED: HYDROCORTISONE 1% CREAM 28 GM TUBE TOP PRN (17:19)
[2017-02-28] MEDS ORDERED: diphenhydrAMINE 2% CREAM 28 GM TUBE TOP PRN (17:19)
[2017-02-28] MEDS: CETIRIZINE 10 MG TABLET PO SCH (18:15)
[2017-02-28] MEDS: ASPIRIN EC 81 MG TABLET PO SCH (18:15)
[2017-02-28] MEDS: ALLOPURINOL 300 MG TABLET PO SCH (18:15)
[2017-02-28] MEDS: GABAPENTIN 100 MG CAPSULE PO SCH (18:15)
[2017-02-28] MEDS: traZODone 50 MG TABLET PO SCH (21:00)
[2017-02-28] MEDS: DOXEPIN 100 MG CAPSULE PO SCH (21:00)
[2017-02-28] MEDS: SERTRALINE 100 MG TABLET PO SCH (21:00)
[2017-02-28] MEDS: TEMAZEPAM 15 MG CAPSULE PO SCH (21:01)
[2017-02-28] MEDS: DOXEPIN 25 MG CAPSULE PO SCH (21:02)
[2017-03-01 05:07] LABS: Basophils % 0.5 % (0.0-0.8); Eosinophils # 0.4 10*3/uL (0.0-0.87); Hematocrit 36.2 VOL% (42.0-52.0); Hemoglobin 12.1 GM/DL (14.0-18.0); Immature Granulocytes % 0.3 %; Immature Granulocytes Absolute 0.02 #; Lymphocytes # 0.9 10*3/uL (1.4-4.0); Lymphocytes % 15.4 % (21.2-54.2); Mean Corpuscular HGB Conc 33.4 GM/DL (32-36); Mean Corpuscular Hemoglobin 32 PG (27-34); Mean Platelet Volume 9.7 FL (9.6-12.0); Monocytes # 0.6 10*3/uL (0.11-0.8); Monocytes % 9.4 % (1.7-12.7); Neutrophils # 4.1 10*3/uL (1.4-7.4); Neutrophils % 68.4 % (38.7-73.9); Platelet Count 151 T/CUMM (130-400); Red Blood Count 3.81 MC/CUMM (3.8-5.5); Red Cell Distribution Width 14.6 % (9.3-17.3); White Blood Count 6.1 T/CUMM (4-12)
[2017-03-01 05:43] LABS: Calcium 7.7 MG/DL (8.5-10.1); Magnesium 2.1 MG/DL (1.8-2.4); Osmolality,Calculated 278.3 MOS/KG (273-304)
[2017-03-01 05:44] LABS: Calcium 7.6 MG/DL (8.5-10.1); Osmolality,Calculated 280.1 MOS/KG (273-304)
--- NOTE | 2017-03-01 07:20 | EKG Report ---
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
--- NOTE | 2017-03-01 08:40 | Cardiology Progress Note ---
Assessment and Plan (1) Bradycardia Status: Acute Current Visit: Yes (2) Chest pain Status: Acute Current Visit: Yes (3) Coronary artery disease Status: Chronic Current Visit: Yes (4) Syncope and collapse Status: Acute Current Visit: Yes (5) Dyslipidemia Status: Chronic Current Visit: Yes (6) Hypertension Status: Chronic Current Visit: Yes (7) Vasovagal syncope Status: Acute Current Visit: Yes (8) Mild cognitive impairment Status: Chronic Current Visit: Yes Cardiology - PN: Subj Interval history: PUBLIC WEIGHER: DR. MEDINA PCP: DR. SCHAFER Mr. Adams is a 86 year old male with a history of bradycardia, coronary artery disease, dyslipidemia, hypertension who presented to the emergency room after a syncopal episode and episode of chest pain. His chest pain was very vague and sounded noncardiac in nature. He had several sets of negative cardiac biomarkers and his EKGs showed no acute ischemic changes. He was noted to be bradycardic in the ER and was admitted for further evaluation. His head CT showed no acute intracranial abnormality. He was on no beronica blocking agents but was on Aricept which could cause some mild bradycardia. This was stopped and he was changed to Namenda. He was somewhat orthostatic and was given some gentle hydration to help improve this. On 02/27/17, he got up to go to the bathroom and had a syncopal episode and he was noted to be hypotensive with HR in the 30s. He was transferred to the CCU for closer monitoring. Dr. Castillo saw Mr. Adams in evaluation for possible pacemaker and on 02/28/17, Mr. 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 He tolerated the procedure without difficulty. Post- operatively, his pacemaker has been evaluated and found to be functioning appropriately. *His post-op chest x-ray shows appropriate lead placement, but did show some progressive atelectasis/infiltration at the right lung base. His WBC has been normal and he has been afebrile. He is breathing without difficulty. He may benefit from an additional night in the hospital for further observation. Will further discuss with Dr. Vann and await his recommendations. If we keep him , we'll transfer him up to telemetry. ASSESSMENT/PLAN: 1. BRADYCARDIA - He has had sinus pauses with syncopal episodes. He is now s/p dual-chamber pacemaker implantation and is much improved. 2. CHEST PAIN - He had several sets of negative cardiac enzymes. His chest pain was very vague and sounded noncardiac in nature. 3. CORONARY ARTERY DISEASE - He is status post coronary artery bypass grafting involving three vessels in 1997. His last stress test was 04/21/12 and revealed scar in the distal anterior wall that has possibly a very small area of reed- infarct ischemia. Echocardiogram 02/26/17 revealed EF 55-60%, mild LVH with diastolic dysfunction, 3+ increased upper septal wall thickness, mild MR, moderate AI, mild to moderate TR. 4. SYNCOPE AND COLLAPSE - CT head was negative. It is felt this could have been related to orthostatic hypotension, but most likely related to his profound bradycardia. Carotid dopplers were performed on 02/26/17 and he was found to have a mild amount of plaque with less than 50% diameter stenoses bilaterally. 5. DYSLIPIDEMIA - Will check lipid panel in the morning. Patient is not currently on statin therapy. 6. HYPERTENSION - We will continue his home medications and monitor and adjust accordingly. 7. VASOVAGAL SYNCOPE 8. MILD COGNITIVE IMPAIRMENT - Has a component of dementia. Was previously on Aricept, but since this can sometimes cause bradycardia, he was changed to Namenda. Dr. Vann to follow with further plan and addendum. Exam (Progress Note) - Constitutional Vitals: Period Temp Pulse Resp BP Sys/Guzmán Pulse Ox Last 24 Hr 98.1 F-98.1 F 51-88 12-19 121-159/57-83 93-100 Exam: General appearance: Pleasant and cooperative. Normal weight, no acute distress. - Head Head exam: Present: normal inspection, normocephalic, atraumatic. Absent: hematoma, laceration - Eye Eye exam: Present: EOMI. Absent: conjunctival injection, nystagmus, periorbital swelling, scleral icterus, laceration to eyelids Pupils: Present: PERRL. Absent: constricted, dilated, fixed, irregular, unequal - ENT ENT exam: Present: normal exam, normal external ear exam - Neck Neck exam: Present: normal inspection. Absent: lymphadenopathy, meningismus, tenderness, thyromegaly - Respiratory Respiratory exam: Present: clear to auscultation bilaterally. Absent: accessory muscle use, chest wall tenderness - Cardiovascular Cardiovascular exam: Present: regular rate and rhythm. Absent: carotid bruit, gallop, JVD, rubs, murmur - GI/Abdominal GI/Abdominal exam: Present: normal bowel sounds, soft. Absent: distended, firm , guarding, hernia, mass, tenderness, rebound. - Extremities Exam Extremities exam: Present: normal inspection, normal capillary refill. Upper extremity pulses 2+. Lower extremity pulses 2+. Absent: calf tenderness, edema -Musculoskeletal Exam Musculoskeletal: Present: No Fluid Collection, No Pain, Normal Range of Motion - Back Exam Back exam: Present: normal inspection. Absent: muscle spasm, vertebral tenderness - Neurological Exam Neurological exam: Present: alert, oriented X3, grossly intact without resting or essential tremor - Psychiatric Psychiatric exam: Present: normal affect, normal mood - Skin Skin exam: Present: normal color, warm, dry, intact. Absent: cyanosis, diaphoretic, rash, urticaria Left chest wall incision dry and intact, well approximated, no active bleeding or hematoma. Result/EKG - Labs CBC & BMP: 03/01/17 04:43 03/01/17 04:43 Lab Results: I have reviewed the past 24 hour labs Labs: Laboratory Results - last 24 hr 03/01/17 03/01/17 03/01/17 04:43 04:43 04:43 WBC 6.1 RBC 3.81 Hgb 12.1 L Hct 36.2 L MCV 95.0 MCH 32 MCHC 33.4 RDW 14.6 Plt Count 151 MPV 9.7 Neut % (Auto) 68.4 Lymph % (Auto) 15.4 L [place] % (Auto) 9.4 Eos % (Auto) 6.0 Baso % (Auto) 0.5 Neut # (Auto) 4.1 Lymph # (Auto) 0.9 L [place] # (Auto) 0.6 Eos # (Auto) 0.4 Baso # (Auto) 0.0 Immature Gran % 0.3 Nucleated RBC % 0.0 Immature Gran # 0.02 Nucleated RBCs # 0.00 Sodium 142 141 Potassium 4.0 4.0 Chloride 109 H 108 H Carbon Dioxide 26 27 Anion Gap 11.0 10.0 BUN 9 10 Creatinine 0.70 0.70 GFR Calculation 90 90 BUN/Creatinine Ratio 12.00 14.00 Glucose 84 86 Calculated Osmolality 280.1 278.3 Calcium 7.6 L 7.7 L Magnesium 2.1 - EKG EKG results: interpreted by me (atrial pacing with underlying sinus rhythm) Quality Measures - VTE Contraindication to Pharmacological VTE Prophylaxis: High Risk of Bleeding
--- NOTE | 2017-03-01 08:54 | XRay Report ---
XR chest 2V Date: 03/01/2017 4:00 AM History: Lead placement Comparison: 02/28/2017 Technique: PA and lateral chest Findings: The heart is minimally enlarged with prior median sternotomy. Left subclavian atrioventricular permanent pacemaker is stable in position with no pneumothorax. Probable hiatal hernia with progressive parenchymal findings at the right lung base. Stable mediastinum and osseous structures. Impression: Stable left subclavian atrioventricular pacemaker with no pneumothorax. Probable hiatal hernia with chronic scarring in patient with prior median sternotomy. Progressive atelectasis/infiltration at the right lung base. Follow-up chest x-ray recommended. PROCEDURE INTERPRETED AT [facility] DEPARTMENT OF RADIOLOGY Final Report Signed by: Dr. Janet Edge
[2017-03-01] MEDS: MEMANTINE 5 MG TABLET PO SCH (09:20)
[2017-03-01] MEDS: MULTIVITAMIN (OCUVITE) TABLET PO SCH (09:21)
[2017-03-01] MEDS: LISINOPRIL 2.5 MG TABLET PO SCH ×2 (09:21→10:50)
--- NOTE | 2017-03-01 10:34 | Discharge Summary ---
Hospital Course - Hospital Course Hospital Course: PAINTER SHIPYARD: DR. MEDINA PCP: DR. LAIRD Mr. Adams is a 86 year old male with a history of bradycardia, coronary artery disease, dyslipidemia, hypertension who presented to the emergency room after a syncopal episode and episode of chest pain. His chest pain was very vague and sounded noncardiac in nature. He had several sets of negative cardiac biomarkers and his EKGs showed no acute ischemic changes. He was noted to be bradycardic in the ER and was admitted for further evaluation. His head CT showed no acute intracranial abnormality. He was on no beronica blocking agents but was on Aricept which could cause some mild bradycardia. This was stopped and he was changed to Namenda. He was somewhat orthostatic and was given some gentle hydration to help improve this. On 02/27/17, he got up to go to the bathroom and had a syncopal episode and he was noted to be hypotensive with HR in the 30s. He was transferred to the CCU for closer monitoring. Dr. Castillo saw Mr. Adams in evaluation for possible pacemaker and on 02/28/17, Mr. 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 He tolerated the procedure without difficulty. Post- operatively, his pacemaker has been evaluated and found to be functioning appropriately. His post-op chest x-ray shows appropriate lead placement, but did show some progressive atelectasis/infiltration at the right lung base. His WBC has been normal and he has been afebrile. He is breathing without difficulty. We will have him follow up with Dr. Castillo in 1 week for incision check as Dr. Medina will not be in clinic next week. He will also need a follow up chest x-ray in 1 week and follow up with his PCP, Dr. Laird. His left arm immobilizer is in place and he has been instructed to wear this at all times and only remove when bathing until he follows up with Dr. Castillo. He is not to allow the shower stream to hit directly on his left chest wall incision. At this time, he has met criteria for discharge and is stable to go home. He takes [place] 7.5/325mg PO Q6H PRN at home and can continue this for incision site pain. After admission, his home medications were corrected in the computer. We have subsequently adjusted his discharge medications to reflect the updated home medication list. - Time spent with patient Time with patient DS: Less than 30 minutes Diagnosis - Discharge Diagnosis (1) Bradycardia Status: Resolved (2) Chest pain Status: Resolved (3) Coronary artery disease Status: Chronic (4) Syncope and collapse Status: Resolved (5) Dyslipidemia Status: Chronic (6) Hypertension Status: Chronic (7) Vasovagal syncope Status: Acute (8) Mild cognitive impairment Status: Chronic Specialty Discharge - Follow Up or Referrals Follow up with: Mariel Medina DO [Physician] - 1 Month (Follow up with Dr. Medina in 1 month. ) Stephen Castillo MD [Physician] - 1 Week (Follow up with Dr. Castillo in 1 week for incision site check. Please schedule for follow up chest x-ray in 1 week and have patient follow up with his PCP regarding results. ) Discharge Plan - Discharge Data Disposition: Disch To Home/Self Care Condition at Discharge: Stable Discharge Diet: heart healthy Activity: no lifting (over 5# with left arm. Keep left arm in immobilizer 12/04 unless bathing/changing clothes for 1 week. ) Hygiene: keep area(s) dry (Do not allow shower stream to directly hit left chest wall incision. ) Weight Bearing at Discharge: full weight bearing Contact your physician if you experience:: fever over 101, Difficulty voiding, Redness or swelling, Nausea/Vomiting, Shortness of breath, Bleeding, pain uncontrolled by pain medications - Discharge Medications New Lisinopril [Prinivil] 2.5 mg PO DAILY #30 tablet Memantine [Namenda] 5 mg PO DAILY #30 tablet Continue Levocetirizine Dihydrochloride [Xyzal] 5 mg PO QPM Aspirin EC Tab 81 mg PO QPM Multivit-Min/FA/Lycopen/Lutein [Centrum Silver Men Tablet] 1 each PO QAM Lutein/Zeaxanthin [Ocuvite Lutein 25-5 mg Softgel] 1 each PO QAM Sertraline [Zoloft] 100 mg PO DAILY Clopidogrel [Plavix] 75 mg PO DIRECTED #0 Hydrocodone/Acetaminophen [Hydrocodon-Acetaminoph 7.5-325] 1 each PO Q6H PRN PRN Reason: Pain Gabapentin 100 mg PO QPM Allopurinol 300 mg PO QPM Docusate Sodium 100 mg PO DAILY PRN PRN Reason: Constipation Discontinued Donepezil [Aricept] 5 mg PO QAM Lisinopril [Lisinopril] 5 mg PO QAM Temazepam [Restoril] 15 mg PO BEDTIME - Follow Up or Referral Follow Up: Mariel Medina DO [Physician] - 1 Month (Follow up with Dr. Medina in 1 month. ) Stephen Castillo MD [Physician] - 1 Week (Follow up with Dr. Castillo in 1 week for incision site check. Please schedule for follow up chest x-ray in 1 week and have patient follow up with his PCP regarding results. ) - Forms/Instructions Exam - Constitutional Vitals: Period Temp Pulse Resp BP Sys/Guzmán Pulse Ox Last 24 Hr 98.1 F-98.1 F 51-88 12-19 121-159/60-83 93-100 Exam: General appearance: Pleasant and cooperative. Normal weight, no acute distress. - Head Head exam: Present: normal inspection, normocephalic, atraumatic. Absent: hematoma, laceration - Eye Eye exam: Present: EOMI. Absent: conjunctival injection, nystagmus, periorbital swelling, scleral icterus, laceration to eyelids Pupils: Present: PERRL. Absent: constricted, dilated, fixed, irregular, unequal - ENT ENT exam: Present: normal exam, normal external ear exam - Neck Neck exam: Present: normal inspection. Absent: lymphadenopathy, meningismus, tenderness, thyromegaly - Respiratory Respiratory exam: Present: clear to auscultation bilaterally, mildly diminished in right lower base. Absent: accessory muscle use, chest wall tenderness - Cardiovascular Cardiovascular exam: Present: regular rate and rhythm. Absent: carotid bruit, gallop, JVD, rubs, murmur - GI/Abdominal GI/Abdominal exam: Present: normal bowel sounds, soft. Absent: distended, firm , guarding, hernia, mass, tenderness, rebound. - Extremities Exam Extremities exam: Present: normal inspection, normal capillary refill. Upper extremity pulses 2+. Lower extremity pulses 2+. Absent: calf tenderness, edema -Musculoskeletal Exam Musculoskeletal: Present: No Fluid Collection, No Pain, Normal Range of Motion - Back Exam Back exam: Present: normal inspection. Absent: muscle spasm, vertebral tenderness - Neurological Exam Neurological exam: Present: alert, oriented X3, grossly intact without resting or essential tremor - Psychiatric Psychiatric exam: Present: normal affect, normal mood - Skin Skin exam: Present: normal color, warm, dry, intact. Absent: cyanosis, diaphoretic, rash, urticaria Left chest wall incision dry and intact, well approximated, no active bleeding or hematoma. Discharge Results Procedures and tests throughout hospitalization: Date of Procedure:: 02/28/17 Procedures performed: Dual-chamber pacemaker implant left subclavian vein Devices implanted: [ Atrial lead: Medtronic model #5076 serial number [id number] ] Ventricular lead: Medtronic model #5076 serial number [id number] Pacemaker: Medtronic model number [id number] Serial number [id number] Labs on day of discharge: Labs from last 24 hours 03/01/17 03/01/17 03/01/17 04:43 04:43 04:43 WBC 6.1 RBC 3.81 Hgb 12.1 L Hct 36.2 L MCV 95.0 MCH 32 MCHC 33.4 RDW 14.6 Plt Count 151 MPV 9.7 Neut % (Auto) 68.4 Lymph % (Auto) 15.4 L [place] % (Auto) 9.4 Eos % (Auto) 6.0 Baso % (Auto) 0.5 Neut # (Auto) 4.1 Lymph # (Auto) 0.9 L [place] # (Auto) 0.6 Eos # (Auto) 0.4 Baso # (Auto) 0.0 Immature Gran % 0.3 Nucleated RBC % 0.0 Immature Gran # 0.02 Nucleated RBCs # 0.00 Sodium 141 142 Potassium 4.0 4.0 Chloride 108 H 109 H Carbon Dioxide 27 26 Anion Gap 10.0 11.0 BUN 10 9 Creatinine 0.70 0.70 GFR Calculation 90 90 BUN/Creatinine Ratio 14.00 12.00 Glucose 86 84 Calculated Osmolality 278.3 280.1 Calcium 7.7 L 7.6 L Magnesium 2.1 DS: Provider Date of admission: 02/26/17 10:13 Primary care physician: Aleah Johnston MD Attending physician on admission: Cy Vick MD Discharging clinician: TEX Zuniga Expected date of discharge: 03/01/17
[2017-03-01 14:34] VITALS: BP 153/70
--- NOTE | 2017-03-19 14:32 | Physician Query Form ---
CLICK EDIT DOCUMENT TO SELECT QUERY ANSWER --> OK --> SIGN Fabiana Hobbs RN Clinical [employer] W) [phone] (f) [phone] [email or web address]: Make your selection(s) from the choices in EACH section by typing an "x" and enter comments in the comment section. Please use your independent medical judgment in providing your response. This request does not imply that any particular answer is desired or expected. CLINICAL INDICATORS: (Providers should not edit this section) Pt. admitted with bradycardia. Pt. had dual chamber pacemaker implanted with diagnosis of "sinus pauses with syncope". Can you please clarify if the patient had any of the following cardiac rhythms? Based on the above, could you clarify the appropriate diagnosis, if significant , that supports the above abnormalities and additional evaluation, monitoring, and/or treatment rendered: ( x) Pt. had sinoatrial pause-- per dr ha's pacmaker note of 02/28/17..." Sinus pauses with syncope" ( ) Pt. had sick sinus syndrome ( ) Pt. had 3rd degree heart block ( ) Pt. had bradycardia only ( ) Other, please specify: ( ) Clinically unable to determine COMMENTS: PLEASE ALSO DOCUMENT RESPONSE IN PROGRESS NOTES AND/OR DISCHARGE SUMMARY Use of terms such as suspected, likely, or probable (associated with a specific diagnosis that is being evaluated, monitored, or treated as if it exists) are acceptable and can be restated in the discharge summary if not ruled out. MTDD
== END 2017-03-01 14:23 | disposition home or self-care (01) | DRG 244 ==
LOC: EDBD → EDUNIT# → N.ED 08:59 → N.EDINP 10:13 → N.TELES 14:15 → N.CC 02-27 06:12
PROVIDERS: ADMIT Internal Medicine Cardiovascular Disease; ATTEND Internal Medicine Cardiovascular Disease